=== PATIENT | female | born 1985 | race Asian ===

== ENCOUNTER 2019-07-25 19:58 | Emergency (ER) | payer OTHER ==
--- NOTE | 2019-07-25 21:31 | ED ---
GI/ HPI - HPI Summary HPI Summary: Patient is a 33 y/o F presenting to [facility] with complaints of abdominal pain, N/ V. Patient states that she had eaten some locally made tofu today, 07/25/19, at around 1600. Patient states that some time after, she felt onset of abdominal pain. Patient characterizes the pain as someone "poking my stomach with a needle ". She took Tylenol, but pain persisted and worsened. Patient endorses N/V as well. She notes that she felt some slight relief in pain after emesis. She denies being on any daily medications and states that she had no Sx before eating tofu. Patient believes that her Sx are gradually resolving at present. On triage, pain is rated 6/10, vomiting is noted to alleviate Sx. Home medications and allergies are reviewed. - History of Current Complaint Chief Complaint: EDAbdPain Time Seen by Provider: 07/25/19 21:28 Stated Complaint: FOOD POISONING PER FRIEND Hx Obtained From: Patient Onset/Duration: Started Hours Ago, Still Present Timing: Lasting Hours Current Severity: Moderate Pain Intensity: 6 Associated Signs and Symptoms: Positive: Nausea, Vomiting, Abdominal Pain Aggravating Factor(s): Nothing Alleviating Factor(s): Vomiting - Allergy/Home Medications Allergies/Adverse Reactions: Allergies Allergy/AdvReac Type Severity Reaction Status Date / Time No Known Allergies Allergy Verified 07/25/19 20:11 PMH/Surg Hx/FS Hx/Imm Hx Endocrine/Hematology History: Denies: Hx Diabetes Cardiovascular History: Denies: Hx Hypertension - Surgical History Surgery Procedure, Year, and Place: none Infectious Disease History: No Infectious Disease History: Denies: Traveled Outside the [place] in Last 30 Days - Family History Known Family History: Negative: Cardiac Disease, Diabetes - Social History Alcohol Use: None Substance Use Type: Reports: None Smoking Status (MU): Never Smoked Tobacco Review of Systems Negative: Fever - on vitals, temp is 98 F Positive: Abdominal Pain, Vomiting, Nausea All Other Systems Reviewed And Are Negative: Yes Physical Exam - Summary Physical Exam Summary: Appearance: Well-appearing, Well-nourished, lying in bed comfortably Skin: Warm, dry, no obvious rash Eyes: sclera anicteric, no conjunctival pallor ENT: mucous membranes moist, pharynx appears normal Neck: Supple, nontender Respiratory: Clear to auscultation, no signs of respiratory distress Cardiovascular: Normal S1, S2. No murmurs. Normal distal pulses in tibial and radial bilaterally. Abdomen: Soft, nontender, normal active bowel sounds present Musculoskeletal: Normal, Strength/ROM Intact Neurological: A&Ox3, awake and alert, mentation is normal, speech is fluent and appropriate Psychiatric: affect is normal, does not appear anxious or depressed Triage Information Reviewed: Yes Vital Signs On Initial Exam: Initial Vitals Temp Pulse Resp BP Pulse Ox 98 F 74 18 103/73 97 07/25/19 20:07 07/25/19 20:07 07/25/19 20:07 07/25/19 20:07 07/25/19 20:07 Vital Signs Reviewed: Yes Diagnostics - Vital Signs Vital Signs Temp Pulse Resp BP Pulse Ox 07/25/19 20:07 98 F 74 18 103/73 97 - Laboratory Lab Statement: Any lab studies that have been ordered have been reviewed, and results considered in the medical decision making process. GIGU Course/Dx - Course Course Of Treatment: Patient is a 33 y/o F presenting to [facility] with complaints of abdominal pain, N/V. Patient states that she had eaten some locally made tofu today, 07/25/19, at around 1600. Patient states that some time after, she felt onset of abdominal pain. Patient characterizes the pain as someone "poking my stomach with a needle". She took Tylenol, but pain persisted and worsened. Patient endorses N/V as well. She notes that she felt some slight relief in pain after emesis. She denies being on any daily medications and states that she had no Sx before eating tofu. Patient believes that her Sx are gradually resolving at present. Physical exam is unremarkable. Patient was given 8 mg SL Zofran in ED. She was discharged to home and given a prescription for Zofran. Patient to follow up with PCP within two days. - Diagnoses Provider Diagnoses: Food poisoning Discharge ED - Sign-Out/Discharge Documenting (check all that apply): Patient Departure - discharge Patient Received Moderate/Deep Sedation with Procedure: No - Discharge Plan Condition: Stable Disposition: HOME Prescriptions: Ondansetron ODT TAB* [Zofran 4 MG Odt TAB*] 8 mg PO Q6H PRN #12 tab.odt PRN Reason: Nausea Patient Education Materials: Food Poisoning (ED) Referrals: [facility] [Outside] - 2 Days (if not better) - Billing Disposition and Condition Condition: STABLE Disposition: Home - Attestation Statements Document Initiated by Steffi: Yes Documenting Scribe: KEATON OBANDO Provider For Whom Steffi is Documenting (Include Credential): SMITH GUTIERREZ MD Scribe Attestation: KEATON Barakat, scribed for SMITH GUTIERREZ MD on 07/26/19 at 0623. Scribe Documentation Reviewed: Yes Provider Attestation: The documentation as recorded by the KEATON yun accurately reflects the service I personally performed and the decisions made by me, SMITH GUTIERREZ MD Status of Scribe Document: Viewed
[2019-07-25] MEDS ORDERED: Ondansetron ODT TAB* 4 MG SL ONE (21:34)
[2019-07-25 22:32] VITALS: BP 105/71
== END 2019-07-25 22:30 | disposition home or self-care (01) ==
LOC: ED 19:58
DX: T62.8X1A Toxic effect of other specified noxious substances eaten as food, accidental (unintentional), initial encounter (principal); R11.2 Nausea with vomiting, unspecified; R10.9 Unspecified abdominal pain; Y92.9 Unspecified place or not applicable
CPT/HCPCS: 99282; A9270-GY